=== PATIENT | male | born 1995 | race Caucasian/White ===

== ENCOUNTER 2017-10-02 11:06 | Emergency (ER) | payer BC ==
[2017-10-02 11:17] VITALS: BP 166/96; PULSE 77; RESP 16; TEMP 98.2; O2SAT 100
--- NOTE | 2017-10-02 11:29 | EDPHY ---
H & P Time Seen by Provider: 10/02/17 11:19 HPI/ROS: CHIEF COMPLAINT: Left great toe subungual hematoma HISTORY OF PRESENT ILLNESS: 22-year-old male states that after a long day of skiing yesterday in ski boots that are too tight he noticed subungual hematoma to his left great toe. No direct trauma or fall onto this area. No crush injury. No underlying osseous discomfort. Notes discomfort to the subungual region only. PHYSICAL EXAM (Prior to examination, patient consented to physical exam, hands were washed and my usual and customary physical exam procedures followed) 1) GENERAL: Well-developed, well-nourished, alert and oriented. Appears to be in no acute distress. 2) HEAD: Normocephalic 3) HEENT: sclera anicteric 4) LUNGS: Breathing comfortably. 5) SKIN: Left great toe subungual hematoma 100% of nail bed surface. No signs of infection. 6) MUSCULOSKELETAL: No underlying osseous discomfort. Flexor extensor function at the MCP and IP intact. 7) NEUROLOGIC: Full sensation Smoking Status: Never smoked Constitutional: Initial Vital Signs Temperature (C) 36.8 C 10/02/17 11:15 Heart Rate 77 10/02/17 11:15 Respiratory Rate 16 10/02/17 11:15 Blood Pressure 166/96 H 10/02/17 11:15 O2 Sat (%) 100 10/02/17 11:15 O2 Delivery Mode Room Air Allergies/Adverse Reactions: No Known Allergies Allergy (Verified 10/02/17 11:14) Home Medications: Medication Instructions Recorded Mesalamine [Pentasa 500 mg] 05/30/16 MDM/Departure - [facility] Procedures: Procedure: Nail trephination. Indication: Subungual hematoma. Anesthesia: None required. Verbal consent was obtained from the patient to drain a subungual hematoma. The patient was prepped in the usual fashion. The subungual hematoma was drained with electrocautery. The subungual hematoma was drained successfully and there were no complications. The procedure was performed by myself. ED Course/Re-evaluation: Doubt underlying fracture in the absence of trauma and absence of underlying osseous discomfort. Subungual hematoma has been drained. Usual and customary precautions instructions provided. He feels comfortable being discharged. Care of patient under supervision of secondary supervising physician Dr Jad Suárez - Depart Disposition: Home, Routine, Self-Care Clinical Impression: Hematoma, subungual, great toe, left Qualifiers: Encounter type: initial encounter Qualified Code(s): S90.212A - Contusion of left great toe with damage to nail, initial encounter Condition: Good Instructions: Subungual Hematoma (ED) Additional Instructions: Return to the ER if you develop redness, swelling, discharge, warmth to the wound, red streaks going up your leg, or any other symptoms that concern you. Referrals: Samy Bustamante DPM [Doctor of Podiatric Medicine] - 3-4 days, if not improved
== END 2017-10-02 11:39 | disposition home or self-care (01) ==
PROC: 0H9RXZZ Drainage of Toe Nail, External Approach (ICD-10-PCS; principal; 2017-10-02)
DX: S90.212A Contusion of left great toe with damage to nail, initial encounter (principal); X58.XXXA Exposure to other specified factors, initial encounter; Y93.23 Activity, snow (alpine) (downhill) skiing, snowboarding, sledding, tobogganing and snow tubing

== ENCOUNTER 2018-05-21 18:24 | Emergency (ER) | payer BC ==
[2018-05-21 19:23] LABS: PLATELET COUNT 302 10^3/uL (150-400)
--- NOTE | 2018-05-21 20:55 | EDPHY ---
H & P Smoking Status: Never smoked Time Seen by Provider: 05/21/18 18:31 HPI/ROS: CHIEF COMPLAINT: Possible suicidal ideation HISTORY OF PRESENT ILLNESS: Patient is a 22-year-old male who will voluntarily came to emergency room at the request of his parents for evaluation of suicidal ideation. The patient states that he and his father had heated argument starting at the football game today and then continuing this afternoon and his father told that he is going to cut off all resources that would not support him anymore. The patient became very frustrated and stated that he saw no point in continuing that he should just and his life. He states this was just a heated argument and statement that he did not truly feel like ending his life and has never had any suicidal thoughts and has never had any suicide attempts. Denies any prior history of mental health issues or depression or suicidal ideation. Denies any intent to harm others. He denies hallucinations. He does currently admit to drinking alcohol. Additionally I discussed this with his mother and the mother agrees that this is a accurate history of what happened and that he indeed has no mental health history. REVIEW OF SYSTEMS: Constitutional: No fever, no chills. Eyes: No discharge. ENT: No sore throat. Cardiovascular: No chest pain, no palpitations. Respiratory: No cough, no shortness of breath. Gastrointestinal: No abdominal pain, no vomiting. Genitourinary: No hematuria. Musculoskeletal: No back pain. Skin: No rashes. Neurological: No headache. (Lizandor Oneill) Physical Exam: General Appearance: Alert and no distress. Eyes: Pupils equal and round no injection. Respiratory: Chest is nontender, lungs are clear to auscultation. Cardiac: regular rate and rhythm. Gastrointestinal: Abdomen is soft and nontender, no masses, bowel sounds normal. Musculoskeletal: Neck is supple and nontender. Extremities have full range of motion and are nontender. Skin: No rashes or lesions. (Lizandro Oneill) Constitutional: Initial Vital Signs Temperature (C) 36.5 C 05/21/18 18:27 Heart Rate 122 H 05/21/18 18:27 Respiratory Rate 20 05/21/18 18:27 Blood Pressure 121/86 H 05/21/18 18:27 O2 Sat (%) 97 05/21/18 18: O2 Delivery Mode Room Air Allergies/Adverse Reactions: No Known Allergies Allergy (Verified 05/21/18 18:26) Home Medications: Medication Instructions Recorded Mesalamine [Pentasa 500 mg] 05/30/16 Medical Decision Making ED Course/Re-evaluation: Patient was medically cleared and then seen evaluated by mental health team who cleared the patient for outpatient follow-up with mental health. (Lizandro Oneill) Differential Diagnosis: Polysubstance abuse, suicidal ideation, homicidal ideation, bipolar disorder ( Lizandro Oneill) Other Provider: 2054: Patient had mental health evaluation, recommendation is for discharge. Parents are in agreement with the evaluators disposition. He does not appear to be acutely a danger to himself at this time. PHYSICIAN DOCUMENTATION: The patient was evaluated and managed by the Physician Director Software and myself. I have reviewed the chart and agree with the findings and plan of care as documented. In addition, I examined the patient myself at 2104. History confirmed as alcohol and cocaine ingestion, not currently suicidal on direct questioning. Physical findings as follows: Alert and normally conversant, not clinically intoxicated at this time. I am the secondary supervising physician. (Jad Suárez) - Data Points Laboratory Results: Laboratory Results 05/21/18 19:09 05/21/18 19:09 05/21/18 05/21/18 05/21/18 19:25 19:09 19:09 WBC RBC Hgb Hct MCV MCH MCHC RDW Plt Count MPV Neut % (Auto) Lymph % (Auto) Stanley % (Auto) Eos % (Auto) Baso % (Auto) Nucleat RBC Rel Count Absolute Neuts (auto) Absolute Lymphs (auto) Absolute Monos (auto) Absolute Eos (auto) Absolute Basos (auto) Absolute Nucleated RBC Immature Gran % Immature Gran # Sodium 145 mEq/L mEq/L (135-145) Potassium 4.2 mEq/L mEq/L (3.3-5.0) Chloride 106 mEq/L mEq/L (97-110) Carbon Dioxide 25 mEq/l mEq/l (22-31) Anion Gap 14 mEq/L mEq/L (8-16) BUN 14 mg/dL mg/dL (7-23) Creatinine 1.0 mg/dL mg/dL (0.7-1.3) Estimated GFR > 60 Glucose 105 mg/dL H mg/dL (70-100) Calcium 9.9 mg/dL mg/dL (8.5-10.4) Salicylates < 1.0 mg/dL L mg/dL (2.0-20.0) Urine Opiates Screen NEGATIVE (NEGATIVE) Acetaminophen < 10 mcg/mL L mcg/mL (10-30) Urine Barbiturates NEGATIVE (NEGATIVE) Ur Phencyclidine Scrn NEGATIVE (NEGATIVE) Ur Amphetamine Screen NEGATIVE (NEGATIVE) U Benzodiazepines Scrn NEGATIVE (NEGATIVE) Urine Cocaine Screen NON-NEGATIVE H (NEGATIVE) U Marijuana (THC) Screen NON-NEGATIVE H (NEGATIVE) Ethyl Alcohol 212 mg/dL H mg/dL 203 mg/dL H mg/dL (0-10) (0-10) 05/21/18 19:09 WBC 10.16 10^3/uL H 10^3/uL (3.80-9.50) RBC 5.67 10^6/uL 10^6/uL (4.40-6.38) Hgb 17.5 g/dL g/dL (13.7-17.5) Hct 49.8 % % (40.0-51.0) MCV 87.8 fL fL (81.5-99.8) MCH 30.9 pg pg (27.9-34.1) MCHC 35.1 g/dL g/dL (32.4-36.7) RDW 12.6 % % (11.5-15.2) Plt Count 302 10^3/uL 10^3/uL (150-400) MPV 9.2 fL fL (8.7-11.7) Neut % (Auto) 64.1 % % (39.3-74.2) Lymph % (Auto) 28.7 % % (15.0-45.0) Stanley % (Auto) 6.4 % % (4.5-13.0) Eos % (Auto) 0.1 % L % (0.6-7.6) Baso % (Auto) 0.5 % % (0.3-1.7) Nucleat RBC Rel Count 0.0 % % (0.0-0.2) Absolute Neuts (auto) 6.51 10^3/uL H 10^3/uL (1.70-6.50) Absolute Lymphs (auto) 2.92 10^3/uL 10^3/uL (1.00-3.00) Absolute Monos (auto) 0.65 10^3/uL 10^3/uL (0.30-0.80) Absolute Eos (auto) 0.01 10^3/uL L 10^3/uL (0.03-0.40) Absolute Basos (auto) 0.05 10^3/uL 10^3/uL (0.02-0.10) Absolute Nucleated RBC 0.00 10^3/uL 10^3/uL (0-0.01) Immature Gran % 0.2 % % (0.0-1.1) Immature Gran # 0.02 10^3/uL 10^3/uL (0.00-0.10) Sodium Potassium Chloride Carbon Dioxide Anion Gap BUN Creatinine Estimated GFR Glucose Calcium Salicylates Urine Opiates Screen Acetaminophen Urine Barbiturates Ur Phencyclidine Scrn Ur Amphetamine Screen U Benzodiazepines Scrn Urine Cocaine Screen U Marijuana (THC) Screen Ethyl Alcohol Departure - Departure Disposition: Home, Routine, Self-Care Clinical Impression: Alcohol intoxication, Cocaine abuse Condition: Good Instructions: Cocaine Abuse (ED), Alcohol Intoxication (ED) Referrals: Saskia Addison PA [Primary Care Provider] - As per Instructions
[2018-05-21 21:04] VITALS: BP 137/80
--- NOTE | 2018-05-22 12:48 | ASMTTCLDSP ---
TLC Discharge Disposition Disposition: Answers: Discharge Disposition Notes: Notes: In consultation with [facility] ED physician, Jad Suárez MD and on-call psychiatrist, Conor Yusuf MD, both concurred that pt does not appear to meet 27-65 criteria requiring psychiatric hospitalization as pt does not appear to be an imminent risk of harm to self and is not gravely disabled due to a mental illness condition. Date Signed: 05/22/2018 12:48 PM Electronically Signed By:Praveen Reyes
--- NOTE | 2018-05-22 12:48 | ASMTTLCEVL ---
TLC Evaluation - Basic Information Evaluation Start Date and 05/21/2018 07:30 PM Time Hospital Status Answers: Voluntary Patient statement Notes: " I was at the game with my family drinking and got really into the Buff fight song and my parents decided to leave. I was upset they left and followed them out. They weren't listening to me, I was drinking, but they wouldn't see my point of view or try to understand. My dad said he was going to cut me off so I said well I guess my life is over and I should just kill myself. " Narrative Notes: PT is 21YO caucasion male, never , no children, [employer] in college, presented via private vehicle with family after he and his father got into a verbal altercation. PT's BAL was .200 Diagnosis History Notes: Pt has seen a therapist for general school anxieties. Unspecified Anxiety Disorder 300.00 (F41.9) Prior suicide attempts Notes: None Prior hospitalizations Notes: None Treatment Responses Notes: Talk therapy was helpful. History of violence Notes: None Therapist: Se Griffin Psychiatrist: None Medications (name, dosage, route, freq uency) Notes: Pentasa 6 perday BID 3 (for chrones) Allergies/Reaction Notes: None Sleep Notes: Good Appetite Notes: Good Medical/Surgical history Notes: Chrones disease Substance use history (frequency, intensity, his tory, duration) Notes: ETOH 19YO Family composition Notes: Only child, parents currently amicably seperated. Need for family Answers: Yes participation in patient's care Family psychiatric/substance abuse history Notes: Aloholism on dads side, depression on Dad's side. Developmental history Notes: Chrones, disease, no add, no TBI's, No concussions Abuse concerns Answers: None Marital status/children Notes: Unmarried, no children Living situation Notes: Live in a house with 5 people, close with girlfriends. Sexual history/orientation Notes: Heterosexual, active Peer support/family strengths Notes: 5-6 close friends, with close family. Education level/history Notes: [employer] in college, studying International affairs and greenlandic. Work history Notes: Works part-time at a [employer] center Notes: None Reported Legal Notes: None Reported Catholic/Spiritual Notes: Not spiritual or religous Leisure Notes: Hockey, friends, watching sports Collateral Notes: Collateral data obtained from pt's GF (present), and pt's mother and father. Patient's strengths Answers: Artistic/Creative/Musical (Please select at least TWO strengths): Athletic Funny/Using Humor Good Friend to Others Good Parent Honest Insightful Intelligent [place] Motivated for Treatment Responsible/Dependable Supportive/Compassionate Supportive Family Willingness [facility] Evaluation - Mental Status Exam Appearance: Answers: Appropriate Clean Well Groomed Neat Eye Contact: Answers: Good/Direct Mood: Answers: Elevated Affect: Answers: Appropriate Calm Congruent w/ Mood Behavior: Answers: Appropriate Cooperative Impulsive Talkative Speech: Answers: Relevant Logical Clear Coherent Thought Process: Answers: Organized Oriented Alert Goal Oriented Insight: Answers: Good Judgement: Answers: Fair Manic Signs/Symptoms Answers: Distractibility Impulsivity Hallucinations: Answers: None Current Stage of Change Answers: Precontemplation Pt reported to have Answers: No suicidal/self-injuring ideation/behavior? Pt reported to be making Answers: Yes suicidal/self-injuring threats? Pt reported to have Answers: No aggression/assault ideation/behavior? Pt reported to be making Answers: No aggression/assault threats? Pt exhibits inability to Answers: No care for self/grave disability? Ideation/behavior is Answers: No chronic? Patient has a specific Answers: No plan? Pt has access to means to Answers: No execute the plan? Ideation involves Answers: No serious/lethal intent? Ideation has Answers: No delusional/hallucinatory content? History of Answers: No suicidal/self-injuring ideation, behavior, or threats? History of Answers: No aggressive/assaultive ideation, behavior, or threats? History of serious Answers: No physical harm to self/others while in treatment setting? [facility] Evaluation - Suicide/Homicide Risk Suicide Risk Factors: Answers: < 20 or > 40 Years of Age Impulsivity Intoxication Current Suicidal Answers: No Ideation? Current Suicidal Ideation Answers: No in the Past 48 Hours? Current Suicidal Ideation Answers: No in the Past Month? Suicide Internal Answers: Absence of Psychosis Protective Factors: Frustration Tolerance Stephen with Stress Suicide External Answers: Positive Therapeutic Protective Factors: Relationships Social Support Ranking of patient's Answers: Low suicidal risk: Ranking of patient's Answers: Low homicidal risk: [facility] Evaluation - Wrap-up BDI Total Score: 0 BDI Question #2 Score: 0 BDI Question #9 Score: 0 BSS Total Score: 0 AXIS I Diagnosis (include DSM-V and ICD-10 codes), must also be entered in [employer], which is the source of truth. Notes: Unspecified Anxiety Disorder 300.00 (F41.9) Evaluation End Date and 05/21/2018 09:30 PM Time (HH:RAY): Date Signed: 05/22/2018 12:47 PM Electronically Signed By:Praveen Reyes
== END 2018-05-21 21:09 | disposition home or self-care (01) ==
DX: R45.851 Suicidal ideations (principal); F10.920 Alcohol use, unspecified with intoxication, uncomplicated
CPT/HCPCS: 80305; G0480